=== PATIENT | male | born 1955 | race Hispanic/Latino ===

== ENCOUNTER 2023-06-13 10:46 | Observation (INO) | payer BC, OTHER ==
--- OUTSIDE RECORDS SUMMARY | 2023-06-13 11:16 | XMS REPORT | Continuity of Care Document ---
:1955 Author Organization [facility] t Address [address] [place] [address] Care Team Providers Name Role Phone Alan Lowe Primary Care Physician JIGNESH HARRELL Attending Clinician Unavailable JIGNESH HARRELL Admitting Clinician Unavailable Problems Condition Condition Condition Status Onset Resolution Last Treating Co mments Source Name Details Category Date Date Treatment Clinician Date Prostate Prostate Disease Recurre [facility] cancer cancer nce 07-11 [facility] 00:00: Medical 00 [place] Allergies, Adverse Reactions, Alerts This patient has no known allergies or adverse reactions. Social History Social Habit Start Date Stop Date Quantity Comments Source Alcohol intake 2017-07-11 2017-07-11 Current drinker [facility]SS S t [facility] 00:00:00 00:00:00 of [facility] (finding) Sex Assigned At [birth year] [facility] ke 00:00:00 00:00:00 [facility] Smoking Status Start Date Stop Date Source Never smoked tobacco [facility] Medications Ordered Filled Start Stop Current Ordering Indication Dosage Frequency Signature Comments Components Source Medication Medication Date Date Medication? Clinician (SIG) Name Name aspirin 81 Yes 81mg QD Take [address] MG EC 8-14 by mouth [facility] tablet 11:33: daily. Medical 28 [place] coenzyme Yes 200mg QD Take [address] [facility] [address] Q10 200 mg 8-14 mg by [facility] capsule 11:33: mouth Medical 28 daily. [place] multivitami Yes 1{capsu QD Take [address] n capsule 8-14 le} capsule by [facility] s 11:33: mouth Medical 28 daily. [place] lisinopril 2017 Yes 10mg QD Take [address] (PRINIVIL,Z 8-14 by mouth [facility] ESTRIL) 10 11:33: daily. Medic al MG tablet 28 [place] rosuvastati Yes 10mg QD Take [address] [facility] n (CRESTOR) 8-14 by mouth [facility] 10 MG 11:33: daily. Medical tablet 28 [place] clopidogrel Yes 75mg QD Take [address] [facility] (PLAVIX) 75 8-14 by mouth [facility] mg tablet 11:33: daily. Medica l 28 [place] ALLOPURINOL 2017 Yes Take by [facility] ORAL 8-14 mouth. [facility] 11:33: Medical 28 [place] tamsulosin Yes .4mg QD Take 0.[address] [facility] (FLOMAX) 8-14 mg by [facility] 0.4 mg Cp24 11:33: mouth Medic al 24 hr 28 daily. [place] capsule aspirin 81 Yes 81mg QD Take [address] MG EC 8-14 by mouth [facility] tablet 11:33: daily. Medical [address] [place] [address] coenzyme 20170 Yes 200mg QD Take [address] [address] Q10 200 mg 8-14 mg by [facility] capsule 11:33: mouth Medical 28 daily. [place] multivitami Yes 1{capsu QD Take [address] n capsule 8-14 le} capsule by Luke [facility] 11:33: mouth Medical 28 daily. [place] lisinopril 2017 Yes 10mg QD Take [address] (PRINIVIL,Z 8-14 by mouth [facility] ESTRIL) 10 11:33: daily. Medic al MG tablet 28 [place] rosuvastati Yes 10mg QD Take [address] [facility] [address] n (CRESTOR) 8-14 by mouth [facility] 10 MG 11:33: daily. Medical tablet 28 [place] clopidogrel 0 Yes 75mg QD Take [address] [facility] [address] (PLAVIX) 75 8-14 by mouth [facility] mg tablet 11:33: daily. Medica l 28 [place] ALLOPURINOL Yes Take by [facility] ORAL 8-14 mouth. [facility] 11:33: Medical 28 [place] tamsulosin Yes .4mg QD Take 0.[address] [facility] [address] (FLOMAX) 8-14 mg by [facility] 0.4 mg Cp24 11:33: mouth Medic al 24 hr 28 daily. [place] capsule aspirin 81 Yes 81mg QD Take [address] MG EC 8-14 by mouth [facility] tablet 11:33: daily. Medical 28 [place] coenzyme Yes 200mg QD Take [address] Q10 200 mg 8-14 mg by [facility] capsule 11:33: mouth Medical 28 daily. [place] multivitami Yes 1{capsu QD Take [address] n capsule 8-14 le} capsule by [facility] 11:33: mouth Medical 28 daily. [place] lisinopril Yes 10mg QD Take [address] (PRINIVIL,Z 8-14 by mouth [facility] ESTRIL) 10 11:33: daily. Medic al MG tablet 28 [place] rosuvastati Yes 10mg QD Take [address] [facility] [address] n (CRESTOR) 8-14 by mouth [facility] 10 MG 11:33: daily. Medical tablet 28 [place] clopidogrel Yes 75mg QD Take [address] [facility] [address] (PLAVIX) 75 8-14 by mouth [facility] mg tablet 11:33: daily. Medica l 28 [place] ALLOPURINOL Yes Take by [facility] ORAL 8-14 mouth. [facility] 11:33: Medical 28 [place] tamsulosin Yes .4mg QD Take 0.[address] [facility] [address] (FLOMAX) 8-14 mg by [facility] 0.4 mg Cp24 11:33: mouth Medic al 24 hr 28 daily. [place] capsule ALLOPURINOL Yes Take by [facility] ORAL 8-14 mouth. [facility] 11:33: Medical 28 [place] tamsulosin Yes .4mg QD Take 0.[address] [facility] [address] (FLOMAX) 8-14 mg by [facility] 0.4 mg Cp24 11:33: mouth Medic al 24 hr 28 daily. [place] capsule aspirin 81 Yes 81mg QD Take [address] MG EC 8-14 by mouth [facility] tablet 11:33: daily. Medical 28 [place] coenzyme 0 Yes 200mg QD Take [address] Q10 200 mg 8-14 mg by [facility] capsule 11:33: mouth Medical 28 daily. [place] multivitami Yes 1{capsu QD Take [address] n capsule 8-14 le} capsule by [facility] 11:33: mouth Medical 28 daily. [place] lisinopril 2017-0 Yes 10mg QD Take [address] (PRINIVIL,Z 8-14 by mouth [facility] ESTRIL) 10 11:33: daily. Medic al MG tablet 28 Center rosuvastati 0 Yes 10mg QD Take [address] [facility] [address] n (CRESTOR) 8-14 by mouth [facility] s 10 MG 11:33: daily. Medical tablet 28 [place] clopidogrel 0 Yes 75mg QD Take [address] [facility] [address] (PLAVIX) 75 8-14 by mouth [facility] s mg tablet 11:33: daily. Medica l 28 Center Procedures This patient has no known procedures. Results Test Description Test Time Test Comments Results Result [facility] e Comments TISSUE EXAM 2017-07-23 Surgical Pathology Report 13:42:00 Case: [id number] Authorizing Provider: Jignesh Harrell MD Collected: 07/11/2017 0845 Ordering Location: [facility] PERIOPERATIVE Received: 07/11/2017 0855 SERVICES Pathologist: Harish Amanda MD Specimens: A) - Lymph Node, RIGHT PELVIC LYMPH NODES B) - Lymph Node, LEFT PELVIC LYMPH NODES C) - Prostate A. LYMPH NODES, RIGHT PELVIC, DISSECTION: - EIGHT LYMPH NODES NEGATIVE FOR TUMOR (0/8)B. LYMPH NODES, LEFT PELVIC, DISSECTION: - FOURTEEN LYMPH NODES NEGATIVE FOR TUMOR (0/14)C. PROSTATE GLAND, RADICAL RETROPUBIC PROSTATECTOMY: - ADENOCARCINOMA, ANYI 4+3=7, FOCAL EXTRAPROSTATIC EXTENSION, SURGICAL MARGINS NEGATIVE SEMINAL VESICLES, RADICAL ROBOTIC ASSISTED PROSTATECTOMY: - NO PATHOLOGIC DIAGNOSIS Signing Pathologist Direct Phone Line: [phone] y signed by Harish Amanda MD on 07/23/2017 at 1:42 PMPreliminary result electronically signed by Harish Amanda MD on 07/14/2017 at 9:37 AMSections show right peripheral zone cancer extending from the apex to the base. Extensive perineural invasion is present. The tumor shows focal EPE in the in the right base posterolaterally in the region of the neurovascular bundle. Surgical margins are negative. PROSTATE GLAND: Radical Prostatectomy (Prostate Res - All Specimens) Specimen Site: Prostatic structure Tumor Site: Prostatic structureSPECIMEN Procedure: Radical prostatectomy Prostate Size: Size (cm): 4 cm Size (cm): 3 cm Size (cm): 2.2 cm Prostate Weight: Specify Weight (g): 440.2 Lymph Node Sampling: Pelvic lymph node dissectionTUMOR Histologic Type: Adenocarcinoma (acinar, not otherwise specified) Anyi Pattern: Elbing pattern Primary Pattern: Grade 4 Secondary Pattern: Grade 3 Tertiary Pattern: Not applicable Total Anyi Score: 7 Tumor Quantitation: Tumor size (dominant nodule, if present) Greatest Dimension (mm): 20 mm Extraprostatic Extension: Present Focality of Extraprostatic Extension: Focal Specify Site(s): Right base neurovascular bundle Seminal Vesicle Invasion (invasion of muscular wall required): Not identified Lymph-Vascular Invasion: Not Identified Perineural Invasion: Present Treatment Effect: Not identifiedMARGINS Margins: Margins uninvolved by invasive carcinomaLYMPH NODES Regional Lymph Nodes: Number of Lymph Nodes Examined: Specify number: 22 Number of Lymph Nodes Involved: None identifiedSTAGE (pTNM) Primary Tumor (pT): +pT2a: Unilateral, involving one-half of 1 side or less Regional Lymph Nodes (pN): pN0: No regional lymph node metastasis Distant Metastasis (pM): Not applicableADDITIONAL FINDINGS Additional Pathologic Findings: High-grade prostatic intraepithelial neoplasia (PIN) Additional Pathologic Findings: Nodular prostatic [id number] x 2, 29435, 20582, 70199Tyffiwwd cancerA. Right pelvic lymph node. B. Left pelvic lymph nodeA. The specimen is received fresh for frozen section diagnosis and labeled "right pelvic lymph node" and consists of adipose tissue measuring 4 x 3 x 1 cm yielding four mostly grossly fatty lymph nodes measuring from 1 to 2.5 cm in greatest dimension. Touch preps are performed and the lymph nodes are entirely submitted for frozen in A1FS to A4FS, small to large. Remainder of the adipose tissue is submitted A5. CG/plB. Received fresh labeled "left pelvic lymph node" consists of adipose tissue measuring 4.6 x 4.2 x 1.2 cm in aggregate yielding 11 fatty lymph nodes measuring up to 3.2 cm in greatest dimension. The specimen is entirely submitted as follows: B1, four lymph nodes; B2, one lymph node bisected; B3, one lymph node bisected; B4, three lymph nodes; B5, one lymph node bisected; B6, B7, largest lymph node bisected; B8-B10, all remaining adipose tissue submitted. CG/ewC. Received with patient name (Héctor Motta) labeled as "prostate" is a radical prostatectomy specimen with attached bilateral seminal vesicles and vas deferens. The prostate weighs 440.2 gm and measures 3.0 cm apex to base, 4.0 cm transversely and 2.2 cm anterior to posterior. The right and left seminal vesicles measures 2.0 x 1.0 x 0.5 cm and 1.5 x 1.0 x 0.5 cm respectively. The right and left vas deferens measure 2.2 cm and 1.5 cm in length respectively and 0.5 cm in diameter. The capsular surface of the prostate is purple-gibson to red dusky and focally ragged. Ink code: right black, left blue. The prostate is serially sectioned from apex to base into 10 slices to reveal pink-gibson to sabillon-white homogeneous focally nodular prostatic parenchyma throughout. No discrete masses are identified. The prostate gland is entirely submitted. Sections of the seminal vesicles reveal a pink-gibson unremarkable cut surface. Section code: C1, apical margin and C2, bladder neck margin. The prostate segments are submitted in cassette C3 to C8, C9 right and left seminal vesicles, C10 seminal vesicle tips. SMH/plTPA1-4, [id number]:LYMPH NODES, RIGHT PELVIC, DISSECTION:FOUR LYMPH NODES NEGATIVE FOR TUMOR (DEFER TO PERMANENTS).FINDINGS DISCUSSED WITH OR-[address] CADET ON 07/11/2017 AT 8:53 AM. Performed. BASIC METABOLIC PANEL 2017-07-13 16:22:00 Test Item Value Reference Range Interpretation Comme nts SODIUM (BEAKER) (test code 135 meq/L 136-145 L = 381) POTASSIUM (BEAKER) (test 4.4 meq/L 3.5-5.1 code = 379) CHLORIDE (BEAKER) (test 100 meq/L 98-107 code = 382) CO2 (BEAKER) (test code = 26 meq/L 22-29 355) BLOOD UREA NITROGEN 11 mg/dL 7-21 (BEAKER) (test code = 354) CREATININE (BEAKER) (test 0.98 mg/dL 0.57-1.25 code = 358) GLUCOSE RANDOM (BEAKER) 144 mg/dL 70-105 H (test code = 652) CALCIUM (BEAKER) (test code 9.3 mg/dL 8.4-10.2 = 697) EGFR (BEAKER) (test code = 78 mL/min/1.73 sq m ESTIMATED GFR IS NOT 1092) ACCURATE CRE ATININE CLEARANCE IN LA EDICTING GLOMERULAR FILT RATION RATE. ESTIMATED GFR IS NOT APPLICABLE FOR DIALYSIS PATIENTS. HEMOGLOBIN AND [id number] 10:08:00 Test Item Value Reference Range Interpretation Comments HEMOGLOBIN (BEAKER) (test code = 12.1 GM/DL 13.7-17.5 L 410) HEMATOCRIT (BEAKER) (test code = 36.0 % 40.1-51.0 L 411) BASIC METABOLIC [id number] 05:23:00 Test Item Value Reference Range Interpretation Comments SODIUM (BEAKER) 136 meq/L 136-145 (test code = 381) POTASSIUM (BEAKER) 3.8 meq/L 3.5-5.1 (test code = 379) CHLORIDE (BEAKER) 105 meq/L 98-107 (test code = 382) CO2 (BEAKER) (test 22 meq/L 22-29 code = 355) BLOOD UREA NITROGEN 12 mg/dL 7-21 (BEAKER) (test code = 354) CREATININE (BEAKER) 1.00 mg/dL 0.57-1.25 (test code = 358) GLUCOSE RANDOM 168 mg/dL 70-105 H (BEAKER) (test code = 652) CALCIUM (BEAKER) 8.6 mg/dL 8.4-10.2 (test code = 697) EGFR (BEAKER) (test 76 mL/min/1.73 ESTIMA ANNIKA GFR IS code = 1092) sq m NOT ACCURATE CREATININE CLEARANCE IN PREDICTING GLOMERULAR FILTRATION RATE . ESTIMATED GFR I S NOT APPLICABLE FOR DIALYSIS PATIEN TS. Before arterial line is discontinuedCBC W/PLT COUNT & AUTO DIFFERENTIAL 2017-07-12 04:54:00 Test Item Value Reference Range Interpretation Comments WHITE BLOOD CELL COUNT (BEAKER) 11.6 K/ L 3.5-10.5 H (test code = 775) RED BLOOD CELL COUNT (BEAKER) 3.65 M/ L 4.63-6.08 L (test code = 761) HEMOGLOBIN (BEAKER) (test code = 11.2 GM/DL 13.7-17.5 L 410) HEMATOCRIT (BEAKER) (test code = 33.2 % 40.1-51.0 L 411) MEAN CORPUSCULAR VOLUME (BEAKER) 91.0 fL 79.0-92.2 (test code = 753) MEAN CORPUSCULAR HEMOGLOBIN 30.7 pg 25.7-32.2 (BEAKER) (test code = 751) MEAN CORPUSCULAR HEMOGLOBIN CONC 33.7 GM/DL 32.3-36.5 (BEAKER) (test code = 752) RED CELL DISTRIBUTION WIDTH 12.9 % 11.6-14.4 (BEAKER) (test code = 412) PLATELET COUNT (BEAKER) (test 121 K/CU MM 150-450 L code = 756) MEAN PLATELET VOLUME (BEAKER) 12.1 fL 9.4-12.4 (test code = 754) NUCLEATED RED BLOOD CELLS 0 /100 WBC 0-0 (BEAKER) (test code = 413) NEUTROPHILS RELATIVE PERCENT 85 % (BEAKER) (test code = 429) LYMPHOCYTES RELATIVE PERCENT 6 % (BEAKER) (test code = 430) MONOCYTES RELATIVE PERCENT 8 % (BEAKER) (test code = 431) EOSINOPHILS RELATIVE PERCENT 0 % (BEAKER) (test code = 432) BASOPHILS RELATIVE PERCENT 0 % (BEAKER) (test code = 437) NEUTROPHILS ABSOLUTE COUNT 9.81 K/ L 1.78-5.38 H (BEAKER) (test code = 670) LYMPHOCYTES ABSOLUTE COUNT 0.73 K/ L 1.32-3.57 L (BEAKER) (test code = 414) MONOCYTES ABSOLUTE COUNT (BEAKER) 0.97 K/ L 0.30-0.82 H (test code = 415) EOSINOPHILS ABSOLUTE COUNT 0.01 K/ L 0.04-0.54 L (BEAKER) (test code = 416) BASOPHILS ABSOLUTE COUNT (BEAKER) 0.02 K/ L 0.01-0.08 (test code = 417) IMMATURE GRANULOCYTES-RELATIVE 0 % 0-1 PERCENT (BEAKER) (test code = 2801) BASIC METABOLIC [id number] 13:12:00 Test Item Value Reference Range Interpretation Comments SODIUM (BEAKER) 138 meq/L 136-145 (test code = 381) POTASSIUM (BEAKER) 4.3 meq/L 3.5-5.1 (test code = 379) CHLORIDE (BEAKER) 109 meq/L 98-107 H (test code = 382) CO2 (BEAKER) (test 20 meq/L 22-29 L code = 355) BLOOD UREA NITROGEN 20 mg/dL 7-21 (BEAKER) (test code = 354) CREATININE (BEAKER) 0.97 mg/dL 0.57-1.25 (test code = 358) GLUCOSE RANDOM 187 mg/dL 70-105 H (BEAKER) (test code = 652) CALCIUM (BEAKER) 8.2 mg/dL 8.4-10.2 L (test code = 697) EGFR (BEAKER) (test 79 mL/min/1.73 ESTIMA ANNIKA GFR IS code = 1092) sq m NOT ACCURATE CREATININE CLEARANCE IN PREDICTING GLOMERULAR FILTRATION RATE . ESTIMATED GFR I S NOT APPLICABLE FOR DIALYSIS PATIEN TS. [id number] 12:29:00 Test Item Value Reference Range Interpretation Comments HEMOGLOBIN (BEAKER) (test code = 11.2 GM/DL 13.7-17.5 L 410) HEMATOCRIT (BEAKER) (test code = 32.4 % 40.1-51.0 L 411)
[2023-06-13] MEDS ORDERED: NA CHLORIDE 0.9% 1,000 ML ONE (11:36)
[2023-06-13 11:43] LABS: Absolute Lymphocytes (CBC) 1.2 K/uL (0.7-4.9); Hematocrit 40.8 % (39.6-49.0); Lymphocytes % 12.2 % (15.3-44.8); MCV 92.1 fL (80-100); MPV 10.1 fL (7.6-11.3); RBC Red Blood Cell Count 4.42 M/uL (4.33-5.43)
--- NOTE | 2023-06-13 11:48 | RAD REPORT ---
[facility] 11[facility]30 am CLINICAL HISTORY: COUGH COMPARISON: CHEST SINGLE VIEW dated 05/03/2014 TECHNIQUE: Portable AP view of the chest. FINDINGS: The lungs are clear. No pneumothorax or effusion. The cardiomediastinal contours are unre markable. IMPRESSION: No acute cardiopulmonary process.
[2023-06-13 12:26] LABS: Bilirubin Direct 0.2 mg/dL (0-0.2); Bilirubin Indirect, Calculated 0.5 mg/dL (0.2-0.8); Bilirubin Total 0.7 mg/dL (0.2-1.0); Magnesium 1.9 mg/dL (1.6-2.4); Potassium 5.8 mEq/L (3.5-5.1); Protein, Total 7.6 g/dL (6.4-8.2); Troponin High Sensitivity 8.1 pg/mL (<58.9)
--- NOTE | 2023-06-13 12:35 | ER ---
Nurse's Notes [facility] Name: Héctor Motta Age: 67 yrs Sex: Male : 1955 Arrival Date: 06/13/2023 Time: 10:[address] Private MD: Diagnosis: Hyperkalemia;Syncope Presentation: 06/13 10:55 Chief complaint: EMS states: after working in yard for 3 hours without eating today, pt eh3 felt tired and sat down on bench, was found by drenched in sweat and nearly unresponsive. EMS report BGL 243. Coronavirus screen: Vaccine status: Patient reports receiving the 2nd dose of the covid vaccine. Ebola Screen: No symptoms or risks identified at this time. Initial Sepsis Screen: Does the patient meet any 2 criteria? No. Patient's initial sepsis screen is negative. Does the patient have a suspected source of infection? No. Patient's initial sepsis screen is negative. Risk Assessment: Do you want to hurt yourself or someone else? Patient reports no desire to harm self or others. Onset of symptoms was June 13, 2023. 10:55 Method Of Arrival: EMS: [facility] 10:55 Acuity: KAT 3 3 11:00 Care prior to arrival: Medication(s) given: LR 500mL. 3 Triage Assessment: 10:57 General: Appears in no apparent distress. comfortable, Behavior is calm, cooperative, eh3 appropriate for age. Pain: Denies pain. Neuro: Level of Consciousness is awake, alert, obeys commands, Oriented to person, place, time, situation. Cardiovascular: Capillary refill < 3 seconds Patient's skin is warm and dry. Respiratory: Airway is patent Respiratory effort is even, unlabored, Respiratory pattern is regular, symmetrical. GI: Abdomen is round non-distended. Derm: Skin is intact, is healthy with good turgor, Skin is diaphoretic. Musculoskeletal: Circulation, motion, and sensation intact. Range of motion: intact in all extremities. Historical: - Allergies: 10:57 No Known Allergies; eh3 - Home Meds: 10:57 Lisinopril Oral [Active]; clopidogrel oral [Active]; pravastatin oral [Active]; eh3 Allopurinol Oral [Active]; aspirin 81 mg Oral tablet, delayed release (enteric coated) daily [Active]; - PMHx: 10:57 Hypertensive disorder; Hypercholesterolemia; eh3 - Immunization history:: Adult Immunizations up to date. - Social history:: Smoking status: Patient denies any tobacco usage or history of. Patient uses alcohol, weekly. Screenin:55 [facility] ED Fall Risk Assessment (Adult) Score/Fall Risk Level 0 - 2 = Low Risk. Abuse eh3 screen: Denies threats or abuse. Denies injuries from another. Nutritional screening: No deficits noted. Tuberculosis screening: No symptoms or risk factors identified. Assessment: 10:55 Reassessment: No changes from previously documented assessment. See triage assessment. 3 11:30 Reassessment: Patient appears in no apparent distress at this time. Patient and/or 3 family updated on plan of care and expected duration. Pain level reassessed. Patient is alert, oriented x 3, equal unlabored respirations, skin warm/dry/pink. 12:30 Reassessment: Patient appears in no apparent distress at this time. Patient and/or 3 family updated on plan of care and expected duration. Pain level reassessed. Patient is alert, oriented x 3, equal unlabored respirations, skin warm/dry/pink. 13:30 Reassessment: Patient appears in no apparent distress at this time. Patient and/or 3 family updated on plan of care and expected duration. Pain level reassessed. Patient is alert, oriented x 3, equal unlabored respirations, skin warm/dry/pink. 14:00 Reassessment: Report received by Azeem on 2nd floor. [facility] Vital Signs: 10:55 BP 115 / 61; Pulse 54; Resp 18; Temp 98(O); Pulse Ox 98% ; Weight 86.18 kg; Height 5 3 ft. 6 in. ; 11:30 BP 142 / 66; Pulse 61; Resp 19; Pulse Ox 100% on R/A; 3 12:30 BP 134 / 65; Pulse 69; Resp 18; Pulse Ox 100% on R/A; eh3 13:30 BP 144 / 72; Pulse 65; Resp 18; Pulse Ox 100% on R/A; 3 10:55 Body Mass Index 30.67 (86.18 kg, 167.64 cm) [facility] ED Course: 10:50 Patient arrived in ED. eb 10:51 Babak Moody MD is Attending Physician. nacho 10:51 [facility] Brown [facility]C [facility] kb 10:54 Jaclyn Awad, RN is Primary Nurse. 3 10:55 Patient has correct armband on for positive identification. Bed in low position. Call 3 light in reach. Side rails up X2. Adult w/ patient. Provided Education on: N/A. Client placed on continuous cardiac and pulse oximetry monitoring. NIBP monitoring applied. Door closed. Noise minimized. Lights dimmed. Warm blanket given. 10:55 Maintain EMS IV. Dressing intact. Good blood return noted. Site clean \T\ dry. Gauge \T\ eh 3 site: 20g LAC. 10:57 Triage completed. eh3 10:57 Arm band placed on. eh3 11:32 XRAY Chest (1 view) In Process Unspecified. EDMS 12:34 Ashley Jean-Baptiste MD is Hospitalizing Provider. kb 14:01 No provider procedures requiring assistance completed. Patient admitted, IV remains in eh3 place. Administered Medications: 11:32 Drug: NS 0.9% IV 1000 ml Route: IV; Rate: 1 bolus; Site: left antecubital; 3 14:02 Follow up: IV Status: Completed infusion; IV Intake: 1000ml 3 12:43 Drug: Kayexalate PO 30 grams Route: PO; 3 14:01 Follow up: Response: No adverse reaction eh3 Medication: 14:00 VIS not applicable for this client. eh3 Intake: 14:02 IV: 1000ml; Total: 1000ml. 3 Outcome: 12:34 Decision to Hospitalize by Provider. kb 14:01 Admitted to Med/surg eh3 14:01 Condition: stable 14:01 Instructed on the need for admit. 14:10 Patient left the ED. 3 Signatures: Dispatcher [employer] EDID Myra Brown FNP-C FIRE OFFICIAL-Ckb Babak Moody MD MD cha Botello, Elizabeth eb Hall, Erin, RN RN eh3 Corrections: (The following items were deleted from the chart) 14:14 10:55 BP 115 / 61; Pulse 54bpm; Resp 18bpm; Pulse Ox 98%; Temp 98F Oral; 90.72 kg; eh3 Height 6 ft. 0 in.; BMI: 27.1; eh3
--- NOTE | 2023-06-13 12:35 | EDPHYS ---
Physician Documentation [facility] Name: éHctor Motta Age: 67 yrs Sex: Male : 1955 Arrival Date: 06/13/2023 Time: 10:[address] Private MD: ED Physician Babak Moody HPI: 06/13 12:04 This 67 yrs old Male presents to ER via EMS with complaints of Near Syncope. kb 12:04 The patient has experienced syncope, lost consciousness. Onset: The symptoms/episode kb began/occurred just prior to arrival. Duration: This was a single episode. Context: occurred outdoors, occurred while the patient was sitting, Just prior to the episode the patient experienced lightheadedness. Associated injury: The patient did not suffer any apparent associated injury. Associated signs and symptoms: Pertinent positives: diaphoresis, lightheadedness. Current symptoms: Currently, the patient is not experiencing any symptoms, the patient feels back to baseline, no decreased level of consciousness, no confusion, no dysphasia, no headache, no paralysis, no visual changes. The patient has not experienced similar symptoms in the past. The patient has not recently seen a physician. Pt states he was doing yardwork, started feeling bad so he sat down and then passed out. EMS reports pt was pale, slightly altered and diaphoretic upon their arrival. Pt now states he is feeling back to normal, color normal and is A\T\Ox4. Historical: - Allergies: 10:57 No Known Allergies; eh3 - Home Meds: 10:57 Lisinopril Oral [Active]; clopidogrel oral [Active]; pravastatin oral [Active]; eh3 Allopurinol Oral [Active]; aspirin 81 mg Oral tablet, delayed release (enteric coated) daily [Active]; - PMHx: 10:57 Hypertensive disorder; Hypercholesterolemia; eh3 - Immunization history:: Adult Immunizations up to date. - Social history:: Smoking status: Patient denies any tobacco usage or history of. Patient uses alcohol, weekly. ROS: 12:03 Constitutional: Negative for fever, chills, and weight loss. kb 12:03 Neuro: Positive for syncope. 12:03 All other systems are negative. Exam: 12:03 Constitutional: This is a well developed, well nourished patient who is awake, alert, kb and in no acute distress. Head/Face: Normocephalic, atraumatic. Eyes: Pupils equal round and reactive to light, extra-ocular motions intact. Lids and lashes normal. Conjunctiva and sclera are non-icteric and not injected. Cornea within normal limits. Periorbital areas with no swelling, redness, or edema. ENT: Moist Mucous membranes Cardiovascular: Regular rate and rhythm with a normal S1 and S2. No gallops, murmurs, or rubs. No pulse deficits. Respiratory: Respirations even and unlabored. No increased work of breathing. Talking in full sentences Abdomen/GI: Soft, non-tender. No distention Skin: Warm, dry with normal turgor. Normal color. MS/ Extremity: Pulses equal, no cyanosis. Neurovascular intact. Full, normal range of motion. Neuro: Awake and alert, GCS 15, oriented to person, place, time, and situation. Moves all extremities. Normal gait. 12:32 ECG was reviewed by the Attending Physician. Vital Signs: 10:55 BP 115 / 61; Pulse 54; Resp 18; Temp 98(O); Pulse Ox 98% ; Weight 86.18 kg; Height 5 eh3 ft. 6 in. ; 11:30 BP 142 / 66; Pulse 61; Resp 19; Pulse Ox 100% on R/A; eh3 12:30 BP 134 / 65; Pulse 69; Resp 18; Pulse Ox 100% on R/A; eh3 13:30 BP 144 / 72; Pulse 65; Resp 18; Pulse Ox 100% on R/A; eh3 10:55 Body Mass Index 30.67 (86.18 kg, 167.64 cm) 3 MDM: 10:51 Patient medically screened. [facility] 12:04 Data reviewed: vital signs, nurses notes. kb 12:32 Differential Diagnosis: cardiac arrhythmia, idiopathic syncope, vasovagal episode, kb dehydration, rhabdomyolysis, heat exhaustion. Consideration of Admission/Observation Patient was admitted/placed on observation. Management of patient was discussed with the following: Primary Care Provider: Dr Jean-Baptiste accepts pt for admission. Requests ct head. Historians other than the Patient: EMS: [facility]. Counseling: I had a detailed discussion with the patient and/or guardian regarding: the historical points, exam findings, and any diagnostic results supporting the discharge/admit diagnosis, lab results, radiology results, the need for further work-up and treatment in the hospital. Admission orders: after a detailed discussion of the patient's condition and case, the admit orders are written by me. 06/13 10:51 Order name: Basic Metabolic Panel; Complete Time: 12:26 06/13 10:51 Order name: CBC with Diff; Complete Time: 11:46 kb 06/13 10:51 Order name: Hepatic Function; Complete Time: 12: 06/13 10:51 Order name: Magnesium; Complete Time: 12: 06/13 10:51 Order name: Protime (+inr); Complete Time: 13:40 06/13 10:51 Order name: Ptt, Activated; Complete Time: 13:40 06/13 10:51 Order name: Troponin High Sensitivity; Complete Time: 12: 06/13 10:51 Order name: CPK; Complete Time: 12: 06/13 10:52 Order name: Basic Metabolic Panel [facility] 06/13 10:52 Order name: CBC with Diff [facility] 06/13 10:52 Order name: LFT's [facility] 06/13 10:52 Order name: Magnesium [facility] 06/13 10:52 Order name: NT PRO-BNP; Complete Time: 12:26 [facility] 06/13 10:52 Order name: PT-INR [facility] 06/13 10:52 Order name: Troponin HS [facility] 06/13 10:52 Order name: Lipase; Complete Time: 12:26 [facility] 06/13 10:52 Order name: Urinalysis w/ reflexes [facility] 06/13 10:52 Order name: XRAY Chest (1 view); Complete Time: 11:49 [facility] 06/13 12:31 Order name: CT Head Brain wo Cont 06/13 12:56 Order name: CT; Complete Time: 12:59 EDMS 06/13 10:51 Order name: EKG; Complete Time: 10:52 06/13 10:52 Order name: EKG; Complete Time: 10:53 [facility] 06/13 10:51 Order name: Cardiac monitoring; Complete Time: 11:10 06/13 10:51 Order name: EKG - Nurse/Tech; Complete Time: 11:31 kb 06/13 10:51 Order name: IV Saline Lock; Complete Time: 11: 06/13 10:51 Order name: Labs collected and sent; Complete Time: 11:31 kb 06/13 10:51 Order name: NPO; Complete Time: 11: 06/13 10:51 Order name: O2 Per Protocol; Complete Time: 11: 06/13 10:51 Order name: O2 Sat Monitoring; Complete Time: 11: 06/13 10:52 Order name: Cardiac monitoring; Complete Time: : [facility] 06/13 10:52 Order name: EKG - Nurse/Tech; Complete Time: : [facility] 06/13 10:52 Order name: IV Saline Lock; Complete Time: [facility] 06/13 10:52 Order name: Labs collected and sent; Complete Time: : [facility] 06/13 10:52 Order name: O2 Per Protocol; Complete Time: [facility] 06/13 10:52 Order name: O2 Sat Monitoring; Complete Time: [facility] EC:32 Rate is 62 beats/min. Rhythm is regular. Left axis deviation noted. [place] interval is kb normal at 160 msec. QRS interval is normal at 150 msec. QT interval is normal at 436 msec. Administered Medications: 11:32 Drug: NS 0.9% IV 1000 ml Route: IV; Rate: 1 bolus; Site: left antecubital; 3 14:02 Follow up: IV Status: Completed infusion; IV Intake: 1000ml [facility] 12:43 Drug: Kayexalate PO 30 grams Route: PO; 3 14:01 Follow up: Response: No adverse reaction 3 Disposition Summary: 06/13/23 12:34 Hospitalization Ordered Hospitalization Status: Observation kb Provider: Ashley Jean-Baptiste [facility] kb Condition: Stable kb Problem: new kb Symptoms: are unchanged kb Bed/Room Type: Standard Room Assignment: 232(06/13/23 13:37) dw Diagnosis - Hyperkalemia kb - Syncope kb Forms: - Medication Reconciliation Form kb - SBAR form kb Signatures: Dispatcher [employer] Myra Daley FNP-C FNP-Ckb Woody, Diana RN RN Babak Monsivais MD MD cha Hall, Erin RN RN 3 Corrections: (The following items were deleted from the chart) 13:37 12:34 kb dw
[2023-06-13] MEDS ORDERED: SOD POLYSTYREN SUL 15 GM/60 ML UCUP ONE (12:48)
--- NOTE | 2023-06-13 12:55 | RAD REPORT ---
EXAM DESCRIPTION: CT - Head Brain Wo Cont - 06/13/2023 12:46 pm CLINICAL HISTORY: SYNCOPE COMPARISON: CT-STROKE BRAIN W/O CONTRAST dated 05/03/2014 TECHNIQUE: All CT scans are performed using dose optimization technique as appropriate and may inclu de automated exposure control or mA/KV adjustment according to patient size. FINDINGS: No intracranial hemorrhage, hydrocephalus or extra-axial fluid collection.No areas of brai n edema or evidence of midline shift. The paranasal sinuses and mastoids are clear. The calvarium is intact. IMPRESSION: No acute intracranial abnormality.
[2023-06-13 13:32] LABS: Protime INR ND
[2023-06-13 14:20] LABS: Calcium Oxalate Crystals- Ur Few /HPF (None Seen); Urine Bacteria None Seen /HPF (<20); Urine Bilirubin NEGATIVE (Negative); Urine Blood Negative (Negative); Urine Color Yellow (Yellow); Urine Glucose 3+ (Negative); Urine Mucus Slight /HPF (None Seen); Urine Protein TRACE (Negative); Urine RBC <5 /HPF (None Seen); Urine Urobilinogen Normal (Normal)
[2023-06-13 14:21] LABS: Urine Clarity Clear (Clear)
[2023-06-13 15:04] VITALS: BMI 27.1
[2023-06-13] MEDS: NA CHLORIDE 0.9% 1,000 ML IV SCH ×2 (15:12→23:48)
[2023-06-13] MEDS ORDERED: SOD POLYSTYREN SUL 15 GM/60 ML UCUP PO ONE (18:00)
--- NOTE | 2023-06-14 01:50 | HP ---
Date of Admission: 06/13/2023 Chief Complaint: Fainting episode. History Of Present Illness: This is a 67-year-old very pleasant male patient who was working outside in his yard from 7:30 a.m. to 10 a.m. today without taking any break. Around 10 o'clock this morning, he started feeling weak and just did not feel good, so he went inside the house and sat down and soon after that, he actually had a fainting episode while he was sitting and meanwhile came in and found him sitting in the chair, passed out with his head leaning forward, and he was not responding to , so after calling him 2 to 3 times, he raised his head up, opened his eyes, and looked at his . checked his blood pressure, which was low. She believes it was 90/60 and then she ended up calling ambulance. Before ambulance came, gave him a bottle of Gatorade and water and 1 popsicle and that actually helped him to feel better and he was brought into ER. After he was evaluated in the ER, he was admitted to the hospital. I saw him in the emergency room, he was feeling much better. Denies any fall or head injury. No headache. No nausea or vomiting. No vision problems. No muscle cramps. Allergies: NO KNOWN ALLERGIES. Medications: List reviewed. Review of Systems: Cardiovascular: As mentioned above. All other systems reviewed and negative. Past Medical History: Hypertension, prostate cancer, TIA, hyperlipidemia, right sided carotid artery stenosis, gout. Past Surgical History: Prostatectomy, right shoulder surgery. Family History: Father had congestive heart failure, mother has hypertension and parkinson disease. Social History: Negative for smoking at this time but he is a prior smoker, uses alcohol occasionally. Physical Examination: Vital Signs: Upon arrival to the emergency room, blood pressure was 115/61, pulse 54, respiratory rate 18, temperature 98%, weight 90.72 kg, height 6 feet. General: Awake, alert, oriented, not in distress. HEENT: Head atraumatic, normocephalic. Conjunctivae nonerythematous. Sclerae white. Mouth, no thrush or edema noted. Ears/Nose, no mass, lesion, discharge noted. Neck: Supple. No JVD, lymph nodes, bruit, thyromegaly noted. Lungs: Bilateral good equal air entry. Clear to auscultation. No rhonchi. No rales. Heart: Normal heart sounds, no murmur or gallop. Abdomen: Soft, bowel sounds normal. No guarding, rigidity, tenderness, mass, hepatosplenomegaly, distention, or bruit noted. Extremities: No leg edema. No calf tenderness. Skin: No rash, ulcer, cellulitis. Lymphatics: No lymph node enlargement in neck, supraclavicular, infraclavicular region. Neuro: No focal neurological deficit. Chest: Unremarkable. External Genitalia: Deferred. Rectal: Deferred. Laboratory Data: White count 9.6, hemoglobin 13.5, platelets 146. Sodium 133, potassium 5.8, chloride 102, bicarb 27, BUN 23, creatinine 1.4, glucose 191. Liver function tests unremarkable. Troponin 8.1, lipase 31. Chest x-ray, no acute changes. CAT scan of the head was negative. No acute intracranial changes. Impression: 1. Syncope. 2. Volume depletion. 3. Acute kidney injury. 4. Hyperkalemia. 5. Hypertension. 6. Hyperlipidemia. 7. Gout. 8. Prostate cancer. 9. Carotid artery stenosis, right. Plan: We will go ahead and admit the patient to hospital for further evaluation and management of this problem. Patient is appropriate for observation. We will go ahead and give him IV fluid hydration. Per order give 1 dose of Kayexalate 30 g p.o. x1 now and second dose this evening. We will repeat blood work tomorrow morning and possible discharge tomorrow morning. Home medications will be continued per order. Details of plan of treatment discussed with the patient. I did have a long discussion with him in presence of his in the emergency room that he should avoid working outside in the hot weather and if he does, he should take frequent breaks at very short intervals like every 15 to 30 minutes. He should take a break, get in the shaded area, and hydrate himself frequently during each break. He should limit his total amount of exposure outside in the hot weather. I will see him tomorrow morning for followup and possible discharge to go home tomorrow. SHEFALI/MODL Voice ID: [id number] ONI
[2023-06-14 07:46] LABS: Absolute Lymphocytes (CBC) 1.2 K/uL (0.7-4.9); Hematocrit 35.8 % (39.6-49.0); Lymphocytes % 16.7 % (15.3-44.8); MCV 92.5 fL (80-100); MPV 9.6 fL (7.6-11.3); RBC Red Blood Cell Count 3.87 M/uL (4.33-5.43)
[2023-06-14 08:18] VITALS: BP 175/80; TEMP 97
[2023-06-14 09:00] LABS: Thyroid Stimulating Hormone 0.869 uIU/mL (0.358-3.740)
[2023-06-14] MEDS ORDERED: LISINOPRIL 10 MG PO SCH (09:00)
[2023-06-14] MEDS ORDERED: HOME MED 1 EA UNK (Aspirin [Aspirin] 81 MG Tab.Chew) PO SCH (09:00)
[2023-06-14] MEDS ORDERED: HOME MED 1 EA UNK (Pravastatin [Pravachol*] 40 MG/TAB Tab) PO SCH (09:00)
[2023-06-14] MEDS ORDERED: ALLOPURINOL 200 MG PO SCH (09:00)
[2023-06-14] MEDS ORDERED: CLOPIDOGREL BISULFATE 75 MG PO SCH (09:00)
[2023-06-14 09:02] VITALS: O2SAT 100
[2023-06-14] MEDS: NA CHLORIDE 0.9% 1,000 ML IV SCH (10:01)
--- NOTE | 2023-06-14 11:27 | DS ---
Date of Discharge: 06/14/2023 Disposition: Discharged to go home. Physical Examination: HEENT: Unremarkable. Lungs: Clear to auscultation. Heart: Sounds normal. Abdomen: Soft. Bowel sounds normal. No guarding, rigidity, tenderness, distention. Extremities: No leg edema. Laboratory Data: Yesterday white count 9.6, hemoglobin 13.5, platelets 146. Today, white count 6.9, hemoglobin 11.9, platelets 118. Chemistry; yesterday sodium 133, potassium 5.8, chloride 102, bicarb 27, BUN 23, creatinine 1.40, glucose 191. Liver function tests unremarkable. Lipase 35. Today, sodium 139, potassium 4, chloride 108, bicarb 29, BUN 22, creatinine 1.06, and glucose was 152. Hospital Course: This is a 67-year-old very pleasant male patient came into emergency room with complaints of fainting episodes. Please see dictated H and P for more information. After patient was evaluated in the emergency room, he was admitted to the hospital with syncope, volume depletion, and acute kidney injury. His chest x-ray was unremarkable. CAT scan of the brain was negative for any acute intracranial changes. He was started on IV fluid hydration. He did have high potassium, which was corrected by giving a couple of doses of Kayexalate yesterday. This morning, potassium is normal and renal function has improved. The patient has some anemia problem, but we do not have any lab results to compare with. So, I have ordered some anemia workup for him and we will follow up on it. His glucose level was high and I have informed him about that. A1c was ordered. We will follow up on that result. I have instructed him to reduce his carbohydrate intake. He exercises regularly and he will continue to do so, but at least next week, he will do 50% of his normal exercise. He normally runs about 3-4 miles a day on most of the days, so he will probably run maybe 1 or 2 miles a day for next 1 week and then he will get back to his normal level of exercise, but I had a long discussion with him in presence of his that he should not work for extended period of time in this hot weather and he should avoid working outside during middle of the day and his yard work he should do it either early in the morning or late in the evening and he should still limit his work duration to only about 15-30 minutes at a time and then he should get back into shed, cool down and start hydrating himself during this rest. The patient understands and realizes importance of hydration and taking frequent breaks. We will go ahead and discharge him today in stable condition and he will follow up with me next week at office. We will follow up on his pending blood test results. Final Diagnoses: 1. Syncope. 2. Volume depletion. 3. Acute kidney injury. 4. Hyperkalemia. 5. Anemia, unspecified. 6. Hypertension. 7. Hyperlipidemia. 8. Prostate cancer. 9. Gout. 10. Carotid artery stenosis, right. Discharge Medications And Instructions: 1. Continue all prior home medication. 2. Follow up at my office next week. SHEFALI/KASH Voice ID: [id number] Report ID: [id number] MTDD
--- NOTE | 2023-06-16 11:52 | EKG ---
Test Date: 2023-06-13 Test Time: 11:34:13 [employer]: [employer] MEASUREMENT RESULTS: Intervals: Rate: 62 AL: 160 QRSD: 150 QT: 430 QTc: 436 [place]: P: 73 AL: 160 QRS: -72 T: -2 INTERPRETIVE STATEMENTS: Normal sinus rhythm Left axis deviation Right bundle branch block Abnormal ECG Compared to ECG 05/03/2014 14:47:44 Right bundle-branch block now present Electronically Signed On 06-16-23 11:46:57 CDT by Eric Piedra
== END 2023-06-14 10:45 | disposition home or self-care (01) ==
LOC: ER 10:46 → ERHOLD 12:35 → 2ND 13:59
PROVIDERS: ADMIT Internal Medicine; ATTEND Internal Medicine
DX: R55 Syncope and collapse (principal); E86.9 Volume depletion, unspecified; N17.9 Acute kidney failure, unspecified; E87.5 Hyperkalemia; I10 Essential (primary) hypertension; E78.5 Hyperlipidemia, unspecified; M10.9 Gout, unspecified; C61 Malignant neoplasm of prostate; I65.21 Occlusion and stenosis of right carotid artery
CPT/HCPCS: 96361; 85025 ×2; 81001; 80048 ×2; 36415; 83735; 82550; 85610; 80076; 84443; 83036; 84484; 82728; 82607; 83690; 83540; 83880; 84466; 70450; 71045; 96360; 99285; J7030 ×3; 93005